=== PATIENT | female | born 1960 | race Caucasian/White ===

== ENCOUNTER → 2017-04-14 | Outpatient (CLI) | payer BC ==
[~2017-04-14] MED LIST: LEVO25TA55 PO
--- NOTE | 2017-04-14 15:51 | KCIC ---
EXAM: Renal sonogram. HISTORY: Microscopic hematuria. TECHNIQUE: Sonographic imaging of the kidneys and bladder was performed. COMPARISON: None. FINDINGS: The right kidney measures 10.6 cm [id number] and the left kidney measures 11.1 cm [id number]. There is a 3.4 x 3.1 x 2.9 cm solid-appearing lesion within the lateral left kidney which demonstrates internal blood flow. There is no hydronephrosis. The bladder is unremarkable. The ureteral jets are both seen. The aorta is normal in caliber. IMPRESSION: 1. 3.4 cm suspected left renal mass. Renal protocol CT or MRI is recommended for better characterization. 2. Otherwise, unremarkable renal sonogram. Electronically signed by: Delia Del Cid MD (04/14/2017 3:47 PM) [id number]
== END | disposition home or self-care (01) ==
LOC: KCIC US 15:16
PROVIDERS: ATTEND Family Medicine
DX: R31.29 Other microscopic hematuria (principal)
CPT/HCPCS: 76770